=== PATIENT | male | born 1965 | race Caucasian/White ===

== ENCOUNTER 2018-10-23 09:30 | Outpatient (RCR) | payer OTHER | END 2018-10-23 10:00 | disposition home or self-care (01) | LOC: OT 09:30 | DX: S02.19XD Other fracture of base of skull, subsequent encounter for fracture with routine healing (principal); S32.009D Unspecified fracture of unspecified lumbar vertebra, subsequent encounter for fracture with routine healing; Z87.820 Personal history of traumatic brain injury; V87.7XXD Person injured in collision between other specified motor vehicles (traffic), subsequent encounter ==

== ENCOUNTER 2019-04-14 13:00 | Outpatient (RCR) | payer OTHER | END 2019-04-27 | LOC: PT | DX: M48.02 Spinal stenosis, cervical region (principal); F07.81 Postconcussional syndrome; S02.109D Fracture of base of skull, unspecified side, subsequent encounter for fracture with routine healing ==

== ENCOUNTER 2019-06-12 13:00 | Outpatient (RCR) | payer OTHER ==
[2019-06-12] MEDS ORDERED: NEURONTIN300 MG/CAP (14:33)
== END 2019-06-12 13:30 ==
LOC: SPEECH 13:00
DX: S06.0X0D Concussion without loss of consciousness, subsequent encounter (principal)

== ENCOUNTER → 2019-06-12 | Outpatient (CLI) | payer OTHER ==
[~2019-06-12] VITALS: Ht 182.9 cm; Wt 85.9 kg
[~2019-06-12] MED LIST: NEURONTIN300 MG/CAP
[2019-06-12 14:18] VITALS: BP 128/75
== END ==
LOC: AMSURD 13:49
DX: Z01.818 Encounter for other preprocedural examination (principal)

== ENCOUNTER 2020-04-17 13:33 | Emergency (ER) | payer OTHER ==
[~2020-04-17] VITALS: Ht 182.9 cm; Wt 97.7 kg
[2020-04-17] MEDS ORDERED: LIPITOR 10M10 MG/TAB PO (14:59)
[2020-04-17 15:37] VITALS: BP 127/68
== END 2020-04-17 15:38 | disposition home or self-care (01) ==
LOC: ED 13:33
DX: S91.212A Laceration without foreign body of left great toe with damage to nail, initial encounter (principal); E78.5 Hyperlipidemia, unspecified; I25.10 Atherosclerotic heart disease of native coronary artery without angina pectoris; Z95.5 Presence of coronary angioplasty implant and graft; Y93.18 Activity, surfing, windsurfing and boogie boarding; Y92.34 Swimming pool (public) as the place of occurrence of the external cause

== ENCOUNTER 2020-07-05 09:38 | Emergency (ER) | payer OTHER ==
[~2020-07-05] VITALS: Ht 182.9 cm; Wt 100.0 kg
[~2020-07-05 09:38] MED LIST changes: +LIPITOR 10M10 MG/TAB PO
[2020-07-05] MEDS ORDERED: AMOXIL500 M1 (09:59)
[2020-07-05] MEDS ORDERED: SUMATRIPTAN SU100 MG PO (09:59)
[2020-07-05] MEDS ORDERED: LOPRESSOR 550 MG/TAB PO (09:59)
[2020-07-05 10:49] LABS: HEMATOCRIT 46.8 % (42.0-52.0); HEMOGLOBIN 15.5 g/dL (13.5-18.0); MEAN CELL VOLUME 90 fl (78-100); MEAN CORPUSCULAR HEMOGLOBIN 30 pg (27-31); MEAN CORPUSCULAR HGB CONC 33 g/dL (33-37); MEAN PLATELET VOLUME 9.5 fl (7.4-10.4); PLATELET COUNT 202 K/mm3 (130-400); RED BLOOD COUNT 5.18 M/mm3 (4.20-5.60); RED CELL DISTRIBUTION WIDTH 12.6 % (11.5-14.5); WHITE BLOOD COUNT 4.5 K/mm3 (4.8-10.8)
[2020-07-05 11:01] LABS: ALBUMIN 4.2 g/dL (3.5-5.0); POTASSIUM 4.1 mmol/L (3.5-5.1)
[2020-07-05 11:02] LABS: CALCIUM 8.9 mg/dL (8.3-10.5)
[2020-07-05 11:04] LABS: TOTAL PROTEIN 7.4 g/dL (6.4-8.3)
[2020-07-05 11:05] LABS: TOTAL BILIRUBIN 0.6 mg/dL (0.2-1.2)
[2020-07-05 11:10] LABS: LYMPHOCYTE 39 % (20-51); MONOCYTE 13 % (3-10); NEUTROPHILS 43 % (42-75)
[2020-07-05 11:59] LABS: ERYTHROCYTE SEDIMENTATION RATE 18 mm/hr (0-20)
[2020-07-05] MEDS ORDERED: AUGMENTIN 875-1 EAC1 PO (13:35)
[2020-07-05 13:46] VITALS: BP 118/75
== END 2020-07-05 13:40 | disposition home or self-care (01) ==
LOC: ED 09:38
PROVIDERS: Nurse Practitioner
DX: G43.909 Migraine, unspecified, not intractable, without status migrainosus (principal); J32.9 Chronic sinusitis, unspecified; I25.10 Atherosclerotic heart disease of native coronary artery without angina pectoris; F17.200 Nicotine dependence, unspecified, uncomplicated; Z20.828 Contact with and (suspected) exposure to other viral communicable diseases; Z95.5 Presence of coronary angioplasty implant and graft
CPT/HCPCS: J1200; J1885; J7030